=== PATIENT | male | born 1980 | race Caucasian/White ===

== ENCOUNTER 2025-01-19 08:12 | Outpatient (CLI) | payer OTHER, SELFPAY ==
--- OUTSIDE RECORDS SUMMARY | 2025-01-19 08:42 | XMS_ITS | Clinical Summary ---
Author Organization [facility] Address [address] [place] [id number] Care Team Providers Care Coke Wheeler Name Role Phone Unavailable Primary Care Provider Unavailabl e Social History Tobacco Use Types Packs/Day Years Used Date Smoking Tobacco: Never Assessed Sex and Gender Information Value Date Recorded Sex Assigned at Not on file Legal Sex Male 5:52 PM CDT Gender Identity Not on file Sexual Orientation Not on file Plan of Treatment Health Maintenance Due Date Last Done Comments Annual Physical 1984 Hepatitis C 12/30/1999 DTaP, Tdap and Td Vaccines ( 1 - Tdap) 2000 Hepatitis B Vaccines (1 of 3 - 19+ 3-dose series) 2000 HPV Vaccines (1 - 3-dose SCD M series) 2008 COVID-19 Vaccine ( - 2023-2 5 season) 2025 Meningococcal B Vaccine Aged Out No l onger eligible based on patient's age to complete this topic Meningococcal Vaccine Aged Out No prakash korey eligible based on patient's age to complete this topic Pneumococcal Vaccine: Pediat rics (0 to 5 Years) and At-Risk Patients (6 to 49 Years) Aged Out No longer eligible b ased on patient's age to complete this topic RSV Immunizations Under 20 Months Aged Out No longer eligible based on patient's age to complete this topic
--- OUTSIDE RECORDS SUMMARY | 2025-01-19 08:42 | XMS_ITS | Clinical Summary ---
Author Organization [facility] Address [address] [id number] Phone Care Team Providers Care Rotor Plate Washer Name Role Phone Unavailable Primary Care Provider Unavailabl e Allergies No known active allergies Medications No known medications Active Problems Problem Noted Date Diagnosed Date Personal history of tobacco use, presenting hazards to health 05/26/2022 History of substance abuse 05/26/2022 History of anxiety disorder 05/26/2022 History of depression 05/26/2022 Immunizations Immunization Administration Dates Next Due PPD TEST 05/26/2022 Tdap 06/03/2022 Surgical History Surgery Date Site/Laterality Comments NO PAST SURGERIES Medical History Medical History Date Comments Ringing in ears Meningitis around age 25. d enies residual Substance abuse (HCC) MJ, heroin , cocaine, opioids, etc. reprots clean for severeal years as off 2022 Anxiety and depression Family History Medical History Relation Name Comments Hodgkin's lymphoma Father Hypertension Father Cancer Maternal Grandfather Breast cancer Mother Leukemia Paternal Grandfather Colon cancer Neg Hx Relation Name Status Comments Father Maternal Grandfather Mother Paternal Grandfather Social History Tobacco Use Types Packs/Day Years Used Date Smoking Tobacco: Every Day Cigarettes 0.5 29.1 Started: 12/1995 Smokeless Tobacco: Never Tobacco Cessation:Ready to Q uit: Not Asked; Counseling Given: Not Answered Comments:2 ppd for over 20 yrs, cut back to <1/2 ppd 2 yrs ago (05/2022) PHQ-2 Answer Date Recorded PHQ-2 Total Score (If total score is 3 or more points, staff should administer the PHQ-9) 0 05/26/2022 Personal Safety Answer Date Recorded Getting School Help Needed Not on file 04/27 Sex and Gender Information Value Date Recorded Sex Assigned at Not on file 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 Gender Identity Not on file Sexual Orientation Not on file Obstetrics History Last Filed Vital Signs Vital Sign Reading Time Taken Comments Blood Pressure 116/74 08/18/2022 12:35 PM CDT Pulse 83 08/18/2022 12:35 PM CDT Temperature 36.8 C (98.2 F) 08/18/2022 12:35 PM CDT Respiratory Rate 20 08/18/2022 12:35 PM CDT Oxygen Saturation 94% 08/18/2022 12:35 PM CDT Inhaled Oxygen Concentration - - Weight 122.5 kg (270 lb) 08/18/2022 12:35 PM CDT Height 188 cm (6' 2) 08/18/2022 12:35 PM CDT Body Mass Index 34.67 08/18/2022 12:35 PM CDT Plan of Treatment Health Maintenance Due Date Last Done Comments Hepatitis C Screening 1981 Hepatitis B Screening 12/30/1999 Pneumococcal vaccine <65 (1 of 2 - PCV) 2000 HPV Vaccines (1 - 3-dose SCDM series) 2008 Depression Screening 05/26/2023 05/26/2022 Regular Well Visit/Exam 18-64 05/26/2023 05/26/2022 Influenza Vaccine (#1) 2025 DTaP/Tdap/Td Vaccine (2 - Td or Tdap) 06/03/2032 Varicella Vaccines Discontinued
[2025-01-19 18:50] LABS: Alanine Aminotransferase 27 U/L (6-50); Albumin Level 4.6 g/dL (3.5-5.1); Alkaline Phosphatase 74 U/L (38-126); Anion Gap 11 mmol/L (4-12); Aspartate Amino Transferase 48 U/L (17-59); Bilirubin,Total 0.5 mg/dL (0.2-1.3); Blood Urea Nitrogen 14 mg/dL (9-20); Calcium 8.7 mg/dL (8.4-10.2); Carbon Dioxide 24 mmol/L (22-30); Chloride 102 mmol/L (98-107); Cholesterol 198 mg/dL (0-200); Estimated Glomerular Filt Rate > 60; Glucose 87 mg/dL (65-110); HDL Direct 59 mg/dL; Potassium 4.7 mmol/L (3.4-5.0); Sodium 137 mmol/L (137-145); Total Protein 7.8 g/dL (6.3-8.2); Triglycerides 79 mg/dL (<150)
[2025-01-19 19:17] LABS: Hematocrit 43.5 % (42.0-52.0); Hemoglobin 13.7 g/dL (14.0-18.0); Immature Granulocyte Percent A 0.5 % (0-0.5); Lymphocytes Absolute Auto 1.75 K/mm3 (0.9-3.2); Mean Corpuscular HGB Conc 31.5 g/dl (32-36); Mean Corpuscular Hemoglobin 28.1 pg (26-34); Mean Corpuscular Volume 89.3 fl (80-100); Nucleated Red Blood Cells Absolute Auto 0.000 K/mm3 (0.0-0.012); Nucleated Red Blood Cells Perc 0.0 % (0.0-0.2); Platelet Count Result 291 k/mm3 (150-375); Red Blood Count 4.87 M/mm3 (4.6-6.20); White Blood Count 9.3 K/mm3 (4.5-10.0)
[2025-01-19 19:18] LABS: Free T3 4.73 pg/mL (2.71-6.16); Free T4 Free Thyroxine 1.28 ng/dL (0.78-2.19)
[2025-01-19 19:26] LABS: Thyroid Stimulating Hormone 4.810 uIU/mL (0.465-4.680)
[2025-01-19 19:37] LABS: Hemoglobin A1C 5.4 % (<5.7)
[2025-01-24 13:09] LABS: Free Testosterone (Direct) 4.3 pg/mL (6.8-21.5)
== END 2025-01-19 08:13 | disposition home or self-care (01) ==
LOC: ANHGOSHLAB 08:13
PROVIDERS: PCP Nurse Practitioner Family; Visit Provider Nurse Practitioner Family
DX: F90.9 Attention-deficit hyperactivity disorder, unspecified type (principal); F32.A Depression, unspecified; G47.30 Sleep apnea, unspecified; R53.83 Other fatigue; E66.09 Other obesity due to excess calories; E66.811 Obesity, class 1; Z68.34 Body mass index [BMI] 34.0-34.9, adult
CPT/HCPCS: 36415; 80053; 80061; 83036; 84402; 84403; 84439; 84443; 84481; 85025

== ENCOUNTER 2025-02-17 07:48 | Outpatient (CLI) | payer OTHER, SELFPAY ==
--- OUTSIDE RECORDS SUMMARY | 2025-02-17 07:56 | XMS_ITS | Clinical Summary ---
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
--- OUTSIDE RECORDS SUMMARY | 2025-02-17 07:56 | XMS_ITS | Clinical Summary ---
Author Organization [facility] Address [address] [place] [id number] Care Team Providers Care Route Salesperson Name Role Phone Unavailable Primary Care Provider [...] Vaccine ( - 2023-2 5 season) 2025 Influenza Adult (#1) 2025 Meningococcal B Vaccine Aged Out No [...]
[2025-03-03 19:35] VITALS: BMI 34.0
--- NOTE | 2025-03-03 19:35 | WPDHOMESLEEP ---
Sleep Study - Home Unattended Date of Study: 02/17/25 Ordering Provider: Arely Bliss APRN Interpreting Provider: Tayler Nicholson DO Home Sleep Study Type: Watch PAT Height: 1.88 m Weight: 120.202 kg Body Mass Index: 34.0 Neck Circumference (inches): 16 Mona: 13 Reason for Sleep Study Daytime hypersomnia Sleep History The patient is a 44-year-old male that had a sleep study ordered by his primary care for evaluation of sleep apnea. The patient admits to snoring loudly, excessive daytime sleepiness and unwanted behaviors during sleep. He does have interruptions in breathing while asleep. He does choke or gasp at night. He denies having trouble breathing on his back. He does have morning headaches. He does have a dry or sore mouth / throat in the morning. He denies nocturnal heartburn. He urinates more than 3 times throughout the night. He denies having difficulty falling asleep but does have difficulty staying asleep. He denies having difficulty returning to sleep if he wakes up throughout the night. He denies any hypnotic or sedative use. He denies feeling anxious about sleep. He does feel tired or sleepy during the day. He does feel tired in the morning. He does have urge to fall asleep during the day. He does feel drowsy while driving. He denies sleep paralysis, cataplexy and hypnagogic/ hypnopompic hallucinations. He denies clenching or grinding his teeth. He denies kicking or jerking his legs excessively. He denies having a restless feeling in his legs. He goes to bed at 11:00 p.m. every night. It takes him 15 minutes to fall asleep. He gets 7 hours of sleep per night. His sleep is a little more restorative on days off. He denies taking any planned naps. He does act out his dreams. he has had sleep walking episodes as an adult. He consumes 1-2 cups of caffeinated beverage per day. he smokes more than a pack of cigarettes per day. He denies alcohol use. He exercises 5-7 nights per week. [facility] Past Medical History Medical History Family history of secondary cancer of bone and bone marrow Family history of non-Hodgkin lymphoma Family history of breast cancer Family History Family History Mother Cancer Father Cancer Grandparent Cancer Grandparent Cancer Grandparent Cancer Grandparent Cancer Social History Social History Smoking status: Current every day smoker Tobacco type: cigarettes Alcohol intake: never Substance use: never Do You Feel Safe in your Home?: No Lack of Transportation: No Lack of Food: Never True Current Housing: I Have Housing Concerned About Future Housing: No Difficulty Paying Gas/Electric Bills: No Difficulty Paying for Meds: No Currently Unemployed: No Education: High School Diploma/GED Difficulty w/ Childcare or Family Care: No Living arrangements: with family Occupation/Education: occupation Gender identity (if verbalized by the patient): Male Agree to blood products: Yes Medications Home Medications ?Medication ?Instructions ?Recorded ?Confirmed ?Type amphetamine sulfate 10 mg tablet 10 mg PO TID 01/14/25 History Sleep Procedure The sleep study was completed using [employer] a technically adequate device with seven channels: peripheral arterial tone, actigraphy, body position, snore, respiratory movement, pulse oximetry, sleep staging, and heart rate. Prior to using the device, the patient received verbal and written instructions for its application and was provided with the help desk phone number for additional telephonic instruction with 24-hour availability of qualified personnel to answer questions. The study was scored using CMS guidelines. Sleep Architecture The total recording time is 8 hrs, 18 min. The total sleep time is 6 hrs, 30 min. Sleep latency is 16 minutes. REM sleep was not detected. The patient had 7 episodes of waking. Sleep architecture shows % deep sleep, % light sleep, and (as % Total Sleep Time) showed NREM (Light %; Deep %), and a % stage REM. The patient spent 78.0% of total sleep time in the supine position. Sleep efficiency was 78.31. Respiratory Analysis The overall AHI (pAHI 4%:) is 62.8. The overall AHI (pAHI 3%:) is 87.3. The overall AHI (pAHI 3%:) is 87.3. The central AHI is 0.5. The AHI was N/A in NREM and N/A in REM sleep. The AHI was 94.3 in Supine and 23.5 in Non-supine sleep. Percent of [place] respirations is 0.0. Oximetry Data The oxygen desaturation index (MITCH 4%:) is 55.6. The mean saturation is 95%, and the lowest saturation is 80%. Time spent with saturation < 88% is 3.9 minutes. Snoring Profile Snoring average intensity is 44 dB. The patient snored above 45 decibels for 105.4 minutes, 27.0% of sleep time. Cardiac Profile The average pulse rate is 73 beats per minutes. The lowest pulse rate is 48 bpm. The highest pulse rate reported is 112 bpm. Atrial fibrillation was not detected. Premature beats occur <0.1 per minute. Assessment and Plan Assessment and Plan (1) GALILEA (obstructive sleep apnea): Code(s): G47.33 - Obstructive sleep apnea (adult) (pediatric) Status: Acute Assessment and Plan: The patient had an overall AHI of 62.8 with desaturation down to 80%. This is consistent with extremely severe sleep apnea. I recommend that the patient have a CPAP Titration with the use of a hypnotic to ensure we obtain enough sleep data and find an optimal pressure setting. Data The data obtained during this sleep study is adequate for interpretation. Certification This sleep study has been reviewed by a board certified sleep medicine physician.
== END 2025-02-18 12:28 | disposition home or self-care (01) ==
PROVIDERS: PCP Nurse Practitioner Family; Visit Provider Nurse Practitioner Family
DX: G47.33 Obstructive sleep apnea (adult) (pediatric) (principal); F90.9 Attention-deficit hyperactivity disorder, unspecified type; F32.A Depression, unspecified; R53.83 Other fatigue; E66.09 Other obesity due to excess calories; Z68.34 Body mass index [BMI] 34.0-34.9, adult
CPT/HCPCS: 95800